=== PATIENT | female | born 1960 | race Caucasian/White ===

== ENCOUNTER → 2016-09-07 | Outpatient (CLI) | payer BC ==
--- NOTE | ~2016-09-07 | MY11 ---
[facility] A Service of [facility] [place] RADIOLOGY TEXT RESULTS PATIENT: ARABELLA ROD LOCATION: [facility] : 58 UNIT #: [id number] AGE: [address]: John Perez MD SEX: F ORDER DR: [id number] [address] [address] [id number] MR#: [id number] Acc #: [id number] NAME: ARABELLA ROD : 1960 SEX: F STUDY DATE/TIME: 09/07/2016 12:05 UNIT: [facility] ROOM: STUDY DESCRIPTION: MY Mammogram Screening Dig Wilbert Attending Physician: John Perez M.D. Referring Physician: John Perez M.D. Ordering Physician: John Perez M.D. Primary Care Physician: John Perez M.D. MEDICAL IMAGING REPORT This report is preliminary unless electronic signature is present. EXAM Digital screening mammogram 09/07/2016 HISTORY 55-year-old woman, positive family history, paternal grandmother. Prior left breast biopsy. Annual screen. COMPARISON STUDIES Comparison mammograms date to 07/03/2009 with most recent 09/02/2015. FINDINGS Digital imaging of each breast was completed utilizing screening protocol. Review includes FDA-approved CAD device. The breast parenchyma is heterogeneous with subareolar duct prominence in each breast. Circumscribed nodule upper inner posterior third left breast is stable. Small intramammary lymph node left breast is stable as well. I see no suspicious mass characteristics. There are no interval occurring microcalcifications and no suspicious architectural deformity. IMPRESSION Stable benign mammogram. Annual screening recommended. BIRADS II Patients over the age of 40 are entered into a reminder system with target due date for the next mammogram. A result letter will also be sent to the patient. BIRADS: 2 - Benign finding Dictated by... Jj Tom M.D. THIS IS AN ELECTRONICALLY VERIFIED REPORT [facility] A Service [facility] RADIOLOGY TEXT RESULTS PATIENT: ARABELLA ROD LOCATION: [facility] #: [id number] : 58 UNIT #: [id number] AGE: [address]: John Perez MD SEX: F ORDER DR: Jj Tom M.D. at 09/07/2016 3:31 PM Helder TD: 09/07/2016 15:01 JOB #: [id number] MEDICAL IMAGING REPORT
== END | disposition home or self-care (01) ==
LOC: SMAM 11:33
DX: Z12.31 Encounter for screening mammogram for malignant neoplasm of breast (principal); Z80.3 Family history of malignant neoplasm of breast
CPT/HCPCS: G0202